=== PATIENT | female | born 1950 | race Caucasian/White ===

== ENCOUNTER 2023-06-24 05:54 | Day surgery (SDC) | payer MEDICARE, OTHER ==
[2023-06-24] MEDS ORDERED: Lactated Ringers 1,000 ML IV ONE (06:39)
[2023-06-24] MEDS ORDERED: Lactated Ringers 1,000 ML IV SCH (07:00)
[2023-06-24] MEDS ORDERED: Xylocaine-Mpf 2% 5 Ml Vial ONE (07:55)
[2023-06-24] MEDS ORDERED: DIPRIVAN 200 MG/20 ML IV ONE ×2 (07:56→08:14)
[2023-06-24 08:48] VITALS: RESP 18; TEMP 98.1
[2023-06-24 09:12] VITALS: BP 114/69; PULSE 75; O2SAT 96
--- NOTE | 2023-06-24 11:08 | OP ---
SURGERY DATE/TIME: 06/24/2023 0800 PREOPERATIVE DIAGNOSIS: Screening exam. POSTOPERATIVE DIAGNOSIS: Mild sigmoid diverticulosis otherwise normal colon. PROCEDURE: Colonoscopy. SURGEON: Dr. Casarez. ANESTHESIA: Medications given by anesthesia department. HISTORY: The patient is a 73-year-old white female who reports she had her last colonoscopy ten years ago. She is here for screening examination today. The patient was appraised of the risks of the procedure including the risk of perforation, phlebitis, untoward reaction to medication, bleeding and missed lesions. The patient verbalized her understanding and desired to have the procedure performed. DESCRIPTION OF PROCEDURE: The patient was given the medications by the anesthesia department. She had continuous pulse oximetry, ECG monitoring and intermittent blood pressure monitoring during the examination. She was placed in the left lateral decubitus position. A digital rectal examination was performed and revealed normal anal sphincter tone and no masses. The flexible Olympus pediatric colonoscope was used to intubate the rectum. A view of the colon was developed sequentially to the cecum. Upon insertion and withdrawal, including a retroflex view in the rectum, no mucosal lesions were encountered other than scattered sigmoid diverticula. The scope was removed from the patient who tolerated the procedure well and was sent back to OP recovery in good condition. The prep was noted to be fair to good.
== END 2023-06-24 09:18 | disposition home or self-care (01) ==
LOC: SDC 05:54
PROVIDERS: ATTEND Family Medicine
DX: Z12.11 Encounter for screening for malignant neoplasm of colon (principal); K57.30 Diverticulosis of large intestine without perforation or abscess without bleeding
CPT/HCPCS: J2704